=== PATIENT | female | born 1975 | race Hispanic/Latino ===

== ENCOUNTER 2018-08-18 06:05 | Observation (INO) | payer BC, OTHER ==
[2018-08-18 06:49] LABS: Absolute Lymphocytes (CBC) 2.2 K/uL (0.7-4.9); Absolute Monocytes 0.3 K/uL (0.1-1.3); Absolute Neutrophil 3.3 K/uL (1.8-8.0); Basophils % 1.3 % (0-1.3); Eosinophils % 2.2 % (0-4.4); Hematocrit 36.8 % (36.0-45.0); Lymphocytes % 36.3 % (15.3-44.8); MPV 10.2 fL (7.6-11.3); Monocytes % 5.8 % (3.3-12.3); RBC Red Blood Cell Count 3.91 M/uL (3.86-4.86)
[2018-08-18] MEDS ORDERED: NA CHLORIDE 0.9% 1,000 ML ONE (07:13)
[2018-08-18] MEDS ORDERED: KETOROLAC 30 MG/ML INJ ONE (07:13)
[2018-08-18 07:42] LABS: ALT/SGPT 17 U/L (12-78); AST/SGOT 14 U/L (15-37); Albumin 3.6 g/dL (3.4-5.0); Alkaline Phosphatase 40 U/L (45-117); BUN Blood Urea Nitrogen 25 mg/dL (7-18); Bicarbonate 22 mmol/L (21-32); Bilirubin Direct < 0.1 mg/dL (0-0.2); Glucose Level 123 mg/dL (74-106); Lipase 157 U/L (73-393); Potassium 4.1 mmol/L (3.5-5.1); Protein, Total 7.3 g/dL (6.4-8.2); Sodium Level 140 mmol/L (136-145)
--- NOTE | 2018-08-18 08:51 | RAD REPORT ---
EXAM DESCRIPTION: US - Abdomen Exam Limited - 08/18/2018 8:06 am CLINICAL HISTORY: Abdominal pain Preliminary findings provided at the time of the study. COMPARISON: None. FINDINGS: Multiple large gallstones are present up to 2.5 cm in size. There is a large stone that re jai fixed near the neck of the gallbladder. There is no wall thickening or pericholecystic fluid. No common duct stone or biliary tree dilatation identified. IMPRESSION: Multiple large gallstones up to 2.5 cm, 1 of which remains fixed at the neck. No wall thickening, biliary tree dilatation or pericholecystic fluid.
[2018-08-18 09:20] LABS: Bilirubin Total 0.2 mg/dL (0.2-1.0)
--- NOTE | 2018-08-18 11:06 | ER ---
Nurse's Notes [facility] Name: Khadra Grover Age: 43 yrs Sex: Female : 1975 Arrival Date: 08/18/2018 Time: 06:07 Bed 20 Private MD: Diagnosis: Cholelithiasis Presentation: 08/18 06:25 Presenting complaint: Patient states: I have been having abdominal pain since 5 this jb4 morning, I have had nausea and vomited once. 06:25 Transition of care: patient was not received from another setting of care. Onset of jb4 symptoms was August 18, 2018. Risk Assessment: Do you want to hurt yourself or someone else? Patient reports no desire to harm self or others. Initial Sepsis Screen: Does the patient meet any 2 criteria? No. Patient's initial sepsis screen is negative. Does the patient have a suspected source of infection? No. Patient's initial sepsis screen is negative. Care prior to arrival: None. 06:25 Method Of Arrival: Ambulatory jb4 06:25 Acuity: TONE 3 jb4 Triage Assessment: 06:25 General: Appears in no apparent distress. uncomfortable, Behavior is calm, cooperative, jb4 appropriate for age. Pain: Complains of pain in abdomen. EENT: No signs and/or symptoms were reported regarding the EENT system. Neuro: Level of Consciousness is awake, alert, obeys commands, Oriented to person, place, time, situation. Cardiovascular: Patient's skin is warm and dry. Respiratory: Airway is patent Respiratory effort is even, unlabored, Respiratory pattern is regular, symmetrical. GI: Abdomen is round non-distended, Reports upper abdominal pain, nausea, vomiting. : No signs and/or symptoms were reported regarding the genitourinary system. Derm: Skin is intact, Skin is pink, warm \T\ dry. Musculoskeletal: Circulation, motion, and sensation intact. 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 - Social history:: Smoking status: Patient/guardian denies using tobacco. - Ebola Screening: : No symptoms or risks identified at this time. Screenin:25 Abuse screen: Denies threats or abuse. Nutritional screening: No deficits noted. jb4 Tuberculosis screening: No symptoms or risk factors identified. Fall Risk None identified. Assessment: 06:25 General: see triage assessment.. jb4 07:12 General: Appears in no apparent distress. Behavior is calm, cooperative. Pain: Pain hb currently is 6 out of 10 on a pain scale. Neuro: Level of Consciousness is awake, alert, obeys commands, Oriented to person, place, time, situation. Cardiovascular: Capillary refill < 3 seconds Patient's skin is warm and dry. Respiratory: Airway is patent Trachea midline Respiratory effort is even, unlabored, Respiratory pattern is regular, symmetrical, Breath sounds are clear bilaterally. GI: Abdomen is non-distended, Bowel sounds present X 4 quads. Abd is soft and non tender X 4 quads. Reports upper abdominal pain. : No signs and/or symptoms were reported regarding the genitourinary system. EENT: No signs and/or symptoms were reported regarding the EENT system. Derm: Skin is intact, is healthy with good turgor. Musculoskeletal: No signs and/or symptoms reported regarding the musculoskeletal system. 08:00 Reassessment: Patient appears in no apparent distress at this time. Patient and/or hb family updated on plan of care and expected duration. Pain level reassessed. Patient is alert, oriented x 3, equal unlabored respirations, skin warm/dry/pink. 09:00 Reassessment: Patient appears in no apparent distress at this time. No changes from previously documented assessment. Patient and/or family updated on plan of care and expected duration. Pain level reassessed. Patient is alert, oriented x 3, equal unlabored respirations, skin warm/dry/pink. 10:00 Reassessment: Patient appears in no apparent distress at this time. Patient and/or hb family updated on plan of care and expected duration. Pain level reassessed. Patient is alert, oriented x 3, equal unlabored respirations, skin warm/dry/pink. 11:05 Reassessment: Patient and/or family updated on plan of care and expected duration. Pain aj1 level reassessed. General: Appears in no apparent distress. comfortable, Behavior is calm, cooperative, appropriate for age. Neuro: Level of Consciousness is awake, alert, obeys commands, Oriented to person, place, time, situation. Cardiovascular: Patient's skin is warm and dry. Respiratory: Airway is patent Respiratory effort is even, unlabored, Respiratory pattern is regular, symmetrical. GI: Abdomen is non-distended, Abd is soft and non tender X 4 quads. Reports upper abdominal pain. Derm: Skin is pink, warm \T\ dry. normal. Musculoskeletal: Circulation, motion, and sensation intact. 12:15 Reassessment: Patient appears in no apparent distress at this time. No changes from aj1 previously documented assessment. Patient and/or family updated on plan of care and expected duration. Pain level reassessed. Patient is alert, oriented x 3, equal unlabored respirations, skin warm/dry/pink. 13:15 Reassessment: Patient appears in no apparent distress at this time. No changes from aj1 previously documented assessment. Patient and/or family updated on plan of care and expected duration. Pain level reassessed. Patient is alert, oriented x 3, equal unlabored respirations, skin warm/dry/pink. 14:19 Reassessment: Patient appears in no apparent distress at this time. No changes from aj1 previously documented assessment. Patient and/or family updated on plan of care and expected duration. Pain level reassessed. Patient is alert, oriented x 3, equal unlabored respirations, skin warm/dry/pink. Vital Signs: 06:25 BP 116 / 64; Pulse 57; Resp 16; Temp 98.2(O); Pulse Ox 99% on R/A; Weight 75.75 kg (R); jb4 Height 5 ft. 5 in. (165.10 cm) (R); Pain 8/10; 07:30 BP 113 / 56; Pulse 60; Resp 16; Pulse Ox 100% on R/A; Pain 6/10; hb 08:30 BP 112 / 73; Pulse 55; Resp 16; Pulse Ox 99% on R/A; hb 09:30 BP 101 / 63; Pulse 60; Resp 16; Pulse Ox 100% on R/A; hb 11:15 BP 110 / 72; Resp 18; Pulse Ox 100% on R/A; aj1 13:15 BP 124 / 58; Pulse 65; Resp 18; Pulse Ox 97% on R/A; aj1 14:19 BP 118 / 65; Pulse 72; Resp 18; Temp 98.9(TE); Pulse Ox 97% on R/A; aj1 06:25 Body Mass Index 27.79 (75.75 kg, 165.10 cm) jb4 ED Course: 06:07 Patient arrived in ED. es 06:13 Crow Colon, DENY is PHCP. pm1 06:13 Frandy Rodrigues MD is Attending Physician. pm1 06:24 Sarwat Loza, RICH is Primary Nurse. jb4 06:25 Arm band placed on left wrist. jb4 06:25 Patient has correct armband on for positive identification. Placed in gown. Bed in low jb4 position. Call light in reach. Side rails up X 1. Pulse ox on. NIBP on. 06:31 Triage completed. jb4 06:39 Inserted saline lock: 20 gauge in right antecubital area, using aseptic technique. tl2 Blood collected. 07:40 Ultrasound completed. Patient tolerated well. sg3 08:07 US Abdomen Limited In Process Unspecified. EDMS 11:05 Roe Bingham MD is Hospitalizing Provider. pm1 11:05 No provider procedures requiring assistance completed. aj1 11:14 Torres Roberts MD is Hospitalizing Provider. pm1 14:19 Report given to RICH Sears on 4th floor. aj1 15:06 Patient admitted, IV remains in place. aj1 Administered Medications: 07:07 Drug: NS 0.9% 1000 ml Route: IV; Rate: 1000 ml; Site: right antecubital; hb 07:08 Drug: TORadol 30 mg Route: IVP; Site: right antecubital; hb 12:55 Drug: Zosyn 3.375 grams Route: IVPB; Infused Over: 60 mins; Site: right antecubital; aj1 15:06 Follow up: IV Status: Completed infusion; IV Intake: 100ml aj1 Intake: 15:06 IV: 100ml; Total: 100ml. aj1 Outcome: 11:05 Decision to Hospitalize by Provider. pm1 15:05 Admitted to Med/surg accompanied by tech, via wheelchair, with chart. aj1 15:05 Condition: good 15:05 Discharge instructions given to patient, Instructed on the need for admit, Demonstrated understanding of instructions. 15:07 Patient left the ED. aj1 Signatures: Dispatcher [employer] Violeta Seymour, RN RN aj1 Amelia Domingo Patrick, RADIO BOARD OPERATOR ANNOUNCER RADIO BOARD OPERATOR ANNOUNCER pm1 Linda Lofton, RN RN Maricruz Duran RN RN tl2 Sarwat Loza RN RN 4 [facility]
--- NOTE | 2018-08-18 11:06 | EDPHYS ---
Physician Documentation [facility] Name: Khadra Grover Age: 43 yrs Sex: Female : 1975 Arrival Date: 08/18/2018 Time: 06:07 Bed 20 Private MD: ED Physician Frandy Rodrigues HPI: 08/18 07:28 This 43 yrs old Female presents to ER via Ambulatory with complaints of pm1 Abdominal Pain. 07:28 The patient presents with abdominal pain in the epigastric area. pm1 07:28 Onset: The symptoms/episode began/occurred this morning, at 05:00. The symptoms do not pm1 radiate. Associated signs and symptoms: Pertinent positives: vomit x 1, Pertinent negatives: chest pain, constipation, diarrhea, dysuria, fever, shortness of breath. The symptoms are described as crampy. Modifying factors: The symptoms are alleviated by nothing, the symptoms are aggravated by food, Ate greasy food last night. Severity of pain: in the emergency department the pain has improved markedly. The patient has experienced similar episodes in the past, a few times. The patient has not recently seen a physician. Patient with known history of gallstones. 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 - Social history:: Smoking status: Patient/guardian denies using tobacco. - Ebola Screening: : No symptoms or risks identified at this time. ROS: 07:28 Constitutional: Negative for fever, chills, and weight loss, Eyes: Negative for injury, pm1 pain, redness, and discharge, ENT: Negative for injury, pain, and discharge, Neck: Negative for injury, pain, and swelling, Cardiovascular: Negative for chest pain, palpitations, and edema, Respiratory: Negative for shortness of breath, cough, wheezing, and pleuritic chest pain. 07:28 Back: Negative for injury and pain, : Negative for injury, bleeding, discharge, and swelling, MS/Extremity: Negative for injury and deformity, Skin: Negative for injury, rash, and discoloration, Neuro: Negative for headache, weakness, numbness, tingling, and seizure. 07:28 Abdomen/GI: Positive for abdominal pain, nausea, vomiting, Negative for diarrhea, constipation. Exam: 07:28 Constitutional: This is a well developed, well nourished patient who is awake, alert, pm1 and in no acute distress. Head/Face: Normocephalic, atraumatic. Eyes: Pupils equal round and reactive to light, extra-ocular motions intact. Lids and lashes normal. Conjunctiva and sclera are non-icteric and not injected. Cornea within normal limits. Periorbital areas with no swelling, redness, or edema. ENT: Nares patent. No nasal discharge, no septal abnormalities noted. Tympanic membranes are normal and external auditory canals are clear. Oropharynx with no redness, swelling, or masses, exudates, or evidence of obstruction, uvula midline. Mucous membranes moist. Neck: Trachea midline, no thyromegaly or masses palpated, and no cervical lymphadenopathy. Supple, full range of motion without nuchal rigidity, or vertebral point tenderness. No Meningismus. Chest/axilla: Normal chest wall appearance and motion. Nontender with no deformity. No lesions are appreciated. Cardiovascular: Regular rate and rhythm with a normal S1 and S2. No gallops, murmurs, or rubs. Normal PMI, no JVD. No pulse deficits. Respiratory: Lungs have equal breath sounds bilaterally, clear to auscultation and percussion. No rales, rhonchi or wheezes noted. No increased work of breathing, no retractions or nasal flaring. 07:28 Back: No spinal tenderness. No costovertebral tenderness. Full range of motion. Skin: Warm, dry with normal turgor. Normal color with no rashes, no lesions, and no evidence of cellulitis. MS/ Extremity: Pulses equal, no cyanosis. Neurovascular intact. Full, normal range of motion. 07:28 Abdomen/GI: Inspection: abdomen appears normal, Bowel sounds: normal, Palpation: abdomen is soft and non-tender, in all quadrants, mass, is not appreciated, rebound tenderness, is not appreciated. 07:28 Neuro: Orientation: is normal, Motor: is normal, moves all fours, Sensation: is normal, no obvious gross deficits. Vital Signs: 06:25 BP 116 / 64; Pulse 57; Resp 16; Temp 98.2(O); Pulse Ox 99% on R/A; Weight 75.75 kg (R); jb4 Height 5 ft. 5 in. (165.10 cm) (R); Pain 8/10; 07:30 BP 113 / 56; Pulse 60; Resp 16; Pulse Ox 100% on R/A; Pain 6/10; hb 08:30 BP 112 / 73; Pulse 55; Resp 16; Pulse Ox 99% on R/A; hb 09:30 BP 101 / 63; Pulse 60; Resp 16; Pulse Ox 100% on R/A; hb 11:15 BP 110 / 72; Resp 18; Pulse Ox 100% on R/A; aj1 13:15 BP 124 / 58; Pulse 65; Resp 18; Pulse Ox 97% on R/A; aj1 14:19 BP 118 / 65; Pulse 72; Resp 18; Temp 98.9(TE); Pulse Ox 97% on R/A; aj1 06:25 Body Mass Index 27.79 (75.75 kg, 165.10 cm) jb4 MDM: 06:25 Patient medically screened. pm1 07:28 Data reviewed: vital signs. Data interpreted: Pulse oximetry: on room air is 99 %. pm1 Interpretation: normal. 09:50 Counseling: I had a detailed discussion with the patient and/or guardian regarding: the pm1 historical points, exam findings, and any diagnostic results supporting the discharge/admit diagnosis, lab results, radiology results. 11:04 Counseling: I had a detailed discussion with the patient and/or guardian regarding: the pm1 need for further work-up and treatment in the hospital. 11:06 Physician consultation: Roe Bingham MD was called at 11:06, was contacted at 11:06, pm1 regarding admission, would like for me to contact and consult with Dr. Roberts . 11:09 Physician consultation: Torres Roberts MD was called at 11:09, was contacted at 11:09, pm1 regarding consult, patient's condition, and will see patient tomorrow, would like medications started, Zosyn, NPO, IV fluids. 11:09 Physician consultation: Torres Roberts MD Admit to his service. pm1 08/18 06:33 Order name: Basic Metabolic Panel pm1 08/18 06:33 Order name: CBC with Diff pm1 08/18 06:33 Order name: Creatinine for Radiology pm1 08/18 06:33 Order name: Hepatic Function pm1 08/18 06:33 Order name: Lipase pm1 08/18 06:34 Order name: Basic Metabolic Panel; Complete Time: 09:38 EDMS 08/18 06:34 Order name: CBC with Automated Diff; Complete Time: 07:11 EDMS 08/18 06:34 Order name: Creatinine (Radiology Only); Complete Time: 07:04 EDMS 08/18 06:34 Order name: Liver (Hepatic) Function; Complete Time: 09:38 EDMS 08/18 06:34 Order name: Lipase; Complete Time: 09:38 EDMS 08/18 07:10 Order name: Urine Dipstick--Ancillary (enter results) ag4 08/18 07:10 Order name: Urine --Ancillary (enter results) ag4 08/18 12:20 Order name: Basic Metabolic Panel EDMS 08/18 12:20 Order name: Basic Metabolic Panel EDMS 08/18 06:33 Order name: IV Saline Lock; Complete Time: 06:37 pm1 08/18 06:33 Order name: Labs collected and sent; Complete Time: 06:37 pm1 08/18 06:33 Order name: Urine Dipstick-Ancillary (obtain specimen); Complete Time: 07:08 pm1 08/18 06:33 Order name: Urine Test (obtain specimen); Complete Time: 07:08 pm1 08/18 06:53 Order name: US Abdomen Limited; Complete Time: 08:59 pm1 08/18 12:20 Order name: NPO EDMS 08/18 12:20 Order name: CBC with Automated Diff EDMS 08/18 12:20 Order name: CBC with Automated Diff EDMS 08/18 12:20 Order name: Lipase EDMS 08/18 12:21 Order name: Lipase EDMS 08/18 12:21 Order name: Liver (Hepatic) Function EDMS 08/18 12:21 Order name: Liver (Hepatic) Function EDMS Administered Medications: 07:07 Drug: NS 0.9% 1000 ml Route: IV; Rate: 1000 ml; Site: right antecubital; hb 07:08 Drug: TORadol 30 mg Route: IVP; Site: right antecubital; hb 12:55 Drug: Zosyn 3.375 grams Route: IVPB; Infused Over: 60 mins; Site: right antecubital; aj1 15:06 Follow up: IV Status: Completed infusion; IV Intake: 100ml aj1 Disposition: 08/18/18 11:05 Hospitalization ordered by Torres Roberts for Observation. Preliminary diagnosis is Cholelithiasis. - Bed requested for Telemetry/MedSurg (observation). - Status is Observation. aj1 - Condition is Stable. - Problem is new. - Symptoms have improved. UTI on Admission? No Addendum: 08/25/2018 19:03 Co-signature as Attending Physician, Frandy Rodrigues MD. p kl Signatures: Dispatcher [employer] EDMS Violeta Jernigan RN RN aj1 Frandy Rodrigues MD MD pkl Martinez, Eric em1 Crow Colon, FILLING WINDER FILLING WINDER pm1 Linda Lofton, RICH RN Sarwat Loza RN RN jb4 Corrections: (The following items were deleted from the chart) 08/18 11:14 11:05 Hospitalization Ordered by Roe Bingham MD for Observation. Preliminary diagnosis pm1 is Cholelithiasis. Bed requested for Telemetry/MedSurg (observation). Status is Observation. Condition is Stable. Problem is new. Symptoms have improved. UTI on Admission? No. pm1 12:36 11:14 08/18/2018 11:05 Hospitalization Ordered by Torres Roberts MD for Observation. em1 Preliminary diagnosis is Cholelithiasis. Bed requested for Telemetry/MedSurg (observation). Status is Observation. Condition is Stable. Problem is new. Symptoms have improved. UTI on Admission? No. pm1 15:07 12:36 08/18/2018 11:05 Hospitalization Ordered by Torres Roberts MD for Observation. aj1 Preliminary diagnosis is Cholelithiasis. Bed requested for Telemetry/MedSurg (observation). Status is Observation. Condition is Stable. Problem is new. Symptoms have improved. UTI on Admission? No. em1
[2018-08-18] MEDS ORDERED: ACETAMINOPHEN 500 MG TAB PO PRN (12:16)
[2018-08-18] MEDS ORDERED: MORPHINE 4 MG/ML SYR IV PRN (12:16)
[2018-08-18] MEDS ORDERED: ONDANSETRON 4 MG/2 ML VIAL IV PRN (12:16)
[2018-08-18] MEDS ORDERED: PIPER/TAZO/NS 3.375gm 3.375 GM/100 ML BAG ONE (12:44)
[2018-08-18 14:10] LABS: Urine Blood TRACE (NEG); Urine Glucose NEGATIVE (NEG); Urine Protein NEGATIVE (NEG); Urine Specific Gravity 1.025 (1.005-1.030)
[2018-08-18] MEDS: D5 0.45 NS 1,000 ML IV SCH ×2 (15:29→20:01)
[2018-08-18] MEDS: PIPER/TAZO/NS 3.375gm 3.375 GM/100 ML BAG IVPB SCH (16:39)
[2018-08-18 18:00] LABS: Urine Appearance CLEAR; Urine Bilirubin NEGATIVE (NEG); Urine Blood NEGATIVE (NEG); Urine Color YELLOW; Urine Glucose NEGATIVE (NEG); Urine Protein NEGATIVE (NEG); Urine Specific Gravity 1.025 (1.005-1.030); Urine Urobilinogen 0.2 mg/dL (0.2-1.0); Urine pH 6.5 (5.0-7.0)
[2018-08-18] MEDS ORDERED: PIPER/TAZO/NS 3.375gm 3.375 GM/100 ML BAG IVPB SCH (18:00)
[2018-08-18 18:23] LABS: Urine Microscopic Reflex NO UMIC
[2018-08-19] MEDS: PIPER/TAZO/NS 3.375gm 3.375 GM/100 ML BAG IVPB SCH ×3 (00:41→16:06)
[2018-08-19] MEDS: D5 0.45 NS 1,000 ML IV SCH ×3 (05:41→21:00)
[2018-08-19 06:09] LABS: Absolute Lymphocytes (CBC) 2.2 K/uL (0.7-4.9); Absolute Monocytes 0.3 K/uL (0.1-1.3); Absolute Neutrophil 3.7 K/uL (1.8-8.0); Eosinophils % 1.7 % (0-4.4); Hematocrit 36.4 % (36.0-45.0); Lymphocytes % 35.4 % (15.3-44.8); MPV 10.2 fL (7.6-11.3); RBC Red Blood Cell Count 3.86 M/uL (3.86-4.86)
[2018-08-19 06:28] LABS: Albumin 3.5 g/dL (3.4-5.0); Bilirubin Direct 0.2 mg/dL (0-0.2); Bilirubin Total 0.6 mg/dL (0.2-1.0); Potassium 3.9 mmol/L (3.5-5.1); Protein, Total 7.5 g/dL (6.4-8.2)
--- NOTE | 2018-08-19 06:32 | HP ---
Date of Admission: 08/18/2018 Reason For Service: Gallbladder disease. History Of Present Illness: This is the case of a 43-year-old patient. She was eating some calzone location and developed epigastric and right upper quadrant pain, lead today associated wit h nausea and vomiting. Found to have symptomatic cholelithiasis. I was called. The patient was adm itted to the hospital for pain control, bowel rest, and options of cholecystectomy. She denies any d ysuria, hematuria, hematochezia, or melena. Denies any recent traveling out of the country. Denies any family member sick at home. Allergies: NONE. Medications: None. Past Medical History: Hypothyroidism and gallstones. Last menstrual period 07/28/2018. Social History: She does not smoke. She does not drink alcohol. Past Surgical History: Appendectomy. Family History: Noncontributory. Review of Systems: Ten points otherwise unremarkable. Physical Examination: General: The patient is awake and alert. HEENT: Pupils are equal and reactive, anicteric. Neck: Supple. Chest: Clear. Abdomen: Epigastric and right upper quadrant tenderness with Romero sign positive. Pelvic: Deferred. Rectal: Deferred. Breasts: Deferred. Extremities: Good capillary refill. Neurologic: Cranial nerves 2 through 12 grossly within normal limits. Laboratory Data: Blood work shows WBC count of 6 with hemoglobin of 12, total bilirubin of 0.2. UA negative and nitrite negative. Abdominal ultrasound shows impacted gallstone over the neck of the gallbladder, fixed. Assessment And Plan: This is a 43-year-old patient with impacted stone in the neck of the gallbladde r. The patient is admitted to the hospital and started IV antibiotics n.p.o., IV hydration. Laparos copic versus open cholecystectomy was fully explained to the patient, which include but are not limit ed to infection, bleeding, damage to adjacent structures, anesthesia complications, choledocholithias is, bile leak, pancreatitis, myocardial infarction, and even . She also understands this may no t relieve any symptoms. She might need more than one surgical intervention. She understood and she wants surgery to be done during this admission. The patient is booked in OR. JOHNATHAN/SHANICE Voice ID: [id number]
[2018-08-19] MEDS ORDERED: Ringers Lactate 1,000 ML IV ONE (07:59)
[2018-08-19] MEDS ORDERED: BUPIVACAINE 0.5% PF 10 ML VIAL ONE (08:01)
[2018-08-19] MEDS ORDERED: PROPOFOL 200 MG/20 ML VIAL IV ONE (08:28)
[2018-08-19] MEDS ORDERED: FENTANYL CITR 100 MCG/2 ML ONE ×2 (08:28→09:45)
[2018-08-19] MEDS ORDERED: MIDAZOLAM HCL 2 MG/2 ML INJ ONE (08:28)
[2018-08-19] MEDS ORDERED: LIDOCAINE 1% MPF 5 ML VIAL ONE (08:29)
[2018-08-19] MEDS ORDERED: ROCURONIUM 50 MG/5 ML VIAL IV ONE (08:29)
[2018-08-19] MEDS ORDERED: DEXAMETHASONE 10 MG/ML VIAL ONE (09:08)
[2018-08-19] MEDS ORDERED: ONDANSETRON 4 MG/2 ML VIAL ONE (09:32)
[2018-08-19] MEDS ORDERED: NEOSTIGMINE 1 MG/ML -10 ML VIAL ONE (09:32)
[2018-08-19] MEDS ORDERED: KETOROLAC 30 MG/ML INJ ONE (09:32)
[2018-08-19] MEDS ORDERED: GLYCOPYRROLATE 0.2 MG/ML SYR ONE (09:32)
--- NOTE | 2018-08-19 09:42 | P.BOP ---
Preoperative diagnosis: acute cholecystitis, symptomatic cholelithiasis Postoperative diagnosis: same Primary procedure: Laparoscopic cholecystectomy Feed Manager: Liya Brantley ([place]) Estimated blood loss: <10cc Specimen: gb Findings: as above Anesthesia: General Complications: None Transferred to: Recovery Room Condition: Good
[2018-08-19] MEDS ORDERED: HYDROCODONE/APAP 7.5/325 MG TAB PO PRN (10:26)
[2018-08-19] MEDS ORDERED: DIPHENHYDRAMINE 25 MG TAB/CAP PO ONE (12:47)
--- NOTE | 2018-08-19 22:05 | OP ---
Date of Procedure: 08/19/2018 Surgeon: Torres Roberts MD Toeing Stockings: PATRICIO Abbott. Preoperative Diagnoses: 1.Acute cholecystitis. 2.Symptomatic cholelithiasis. Postoperative Diagnoses: 1.Acute cholecystitis. 2.Symptomatic cholelithiasis. Procedure: Laparoscopic cholecystectomy. Estimated Blood Loss: Less than 10 cc. Specimen: Gallbladder. Anesthesia: General plus local. Indication: This is the case of a female who comes to us with acute cholecystitis, symptomatic trina lithiasis, and stone impacted in the neck of the gallbladder, with Romero sign positive. The patient wants surgery to be done during this admission. So, the benefits, alternatives, and risks of laparo scopic, possible open cholecystectomy were fully explained to her which include, but are not limited to infection, bleeding, damage to adjacent structures, anesthesia complications, choledocholithiasis, bile leak, pancreatitis, VA, and even . She also understands this might not relieve any sympto ms. She might need more than one surgical intervention. She understood, signed a consent. Description Of Procedure: The patient was brought to the operating room, placed in supine position. Anesthesia was done without complication. Abdominal area was prepped and draped in a sterile fashio n. Marcaine 0.5% was injected for local anesthetic, followed by sharp incision of the skin in the in fraumbilical region. Incision was carried down to fascia, which was opened under direct vision. Per itoneum was encountered, opened under direct vision. Vicryl #1 was placed on the fascia. Noe tro car was carefully introduced. Pneumoperitoneum was obtained. I placed 3 more trocars under direct v isualization in the right upper quadrant, 5 mm each one of them. This allowed me to place the patien t in reverse Trendelenburg position. The fundus of the gallbladder was grasped with a grasper, anoth er one in the infundibulum, retracting the gallbladder in the inferolateral fashion, exposing the tri angle of Calot, obtaining critical view of safety. The cystic duct and cystic artery were clearly is olated, freed circumferentially, and a connection between those and the gallbladder was clearly ident ified. I proceeded to ligate those by using at least 3 clips proximal, 1 clip distal, ligation in mi ddle. Same was done with the cystic artery. No bile leak. No bleeding. The gallbladder was remove d from liver using Bovie cauterizer and removed from abdominal cavity using an EndoCatch through the umbilical incision. The area was inspected once again. No bile leak. No bleeding. Gallbladder was removed from liver using EndoCatch as described above. We took a look at the iliac gallbladder andrade a, looked intact with no bleeding. Clips were intact. No bleeding. No bile leak. At that moment, I proceeded to remove the trocars under direct vision. Deflated pneumoperitoneum. Closed the fascia with #1 Vicryl. Irrigated subcutaneous tissue, closed that with 3-0 chromic, the skin in a subcutic ular fashion with 3-0 chromic, and Steri-Strips on top. Sponge counts and instrument counts were cor rect. The patient tolerated the procedure well. The patient was sent to recovery room in stable con dition. ROSALBA Voice ID: [id number] Report ID: [id number]
--- NOTE | 2018-08-19 22:08 | DS ---
Diagnoses: 1.Acute cholecystitis. 2.Symptomatic cholelithiasis. Procedure: Laparoscopic cholecystectomy. Disposition: If she tolerates diet this afternoon, after then she may be able to go home. Followup: Follow up in my office in 1 week. Call for an appointment, [phone]. Keep area dry for 4 8 hours, then may shower. Keep Steri-Strips intact. Medications: Include Augmentin 875 p.o. q.12 hours, Tylenol No. 3 q.4 hours p.r.n. pain. No heavy lifting, no more than 20 pounds. JOHNATHAN/SHANICE Voice ID: [id number] Report ID: [id number]
[2018-08-20] MEDS: PIPER/TAZO/NS 3.375gm 3.375 GM/100 ML BAG IVPB SCH ×2 (01:00→10:04)
[2018-08-20] MEDS: D5 0.45 NS 1,000 ML IV SCH ×2 (05:00→13:00)
== END 2018-08-20 15:53 | disposition home or self-care (01) ==
LOC: ER 06:05 → ERHOLD 12:14 → 2ND 14:26
PROVIDERS: ADMIT Surgery; ATTEND Surgery
PROC: 0FT44ZZ Resection of Gallbladder, Percutaneous Endoscopic Approach (ICD-10-PCS; principal; 2018-08-19 08:30)
DX: K80.00 Calculus of gallbladder with acute cholecystitis without obstruction (principal); E03.9 Hypothyroidism, unspecified
CPT/HCPCS: 36415; 76705; 80048; 80076; 81003; 81025; 83690; 85025; 88304; 96365; 96366; 96375; 99285; G0378; J1100; J2250; J2405; J2543; J2704; J2710; J3010; J7030